=== PATIENT | female | born 1985 | race Caucasian/White ===

== ENCOUNTER 2016-04-15 20:37 | Emergency (ER) | payer MEDICAID, OTHER ==
[~2016-04-15] VITALS: Ht 157.5 cm; Wt 54.5 kg
[~2016-04-15 20:37] MED LIST: CITA20 PO; FLAG500T PO; MEDR150P IM
[2016-04-15 20:39] VITALS: BP 119/73; PULSE 106; RESP 18; TEMP 98.1; O2SAT 97
--- NOTE | 2016-04-15 23:59 | PD ---
HPI Chief Complaint: Skin Problem Time Seen by Provider: 23:54 Travel History International Travel<30 days: No Contact w/Intl Traveler<30days: No Traveled to known affect area: No History of Present Illness HPI 30-year-old white female presents from her department with complains of a painful lump by her anus. She states that she's had this for many years. It comes and goes at times. It has been worse this past week. She does note some blood when she wipes. She also has noted a painful lump in her right groin. She has subjective fever and chills. No dysuria or frequency. No vaginal discharge. No abdominal pain. Symptoms are moderate. PFSH Past Medical History Medical History: Denies Significant Hx Reproductive: Yes (STATES HAS HAD CYSTS ON OVERIES) Tetanus Vaccination: < 5 Years ?: Not : 1 : 1 Dilation and Curettage (D&C): No Past Surgical History Surgical History: No Previous Surgery Social History Alcohol Use: No Tobacco Use: No Substance Use: No Allergies-Medications (Allergen,Severity, Reaction): Coded Allergies: No Known Allergies (Verified , 11/04/13) Reported Meds & Prescriptions Reported Meds & Active Scripts Active Flagyl (Metronidazole) 500 Mg Tab 500 Mg PO BID Celexa 20 Mg Tab (Citalopram Hydrobromide) 20 Mg Tab 20 Mg PO DAILY Depoprovera 150 Mg Vial (Medroxyprogesterone Acetate) 150 Mg/Ml Susp 150 Mg IM Q90D Review of Systems Except as stated in HPI: all other systems reviewed are Neg Physical Exam Narrative Patient's examined with Desire present GENERAL: This is a well-nourished, well-developed patient, in no apparent distress. SKIN: Patient has mild erythema in the pubic region with a tender right inguinal lymph node. No fluctuance or pointing. No lymphangitis. HEAD: Atraumatic. Normocephalic. EYES: PERRL, EOMI, no discharge or injection. No scleral icterus. EARS: Clear NOSE: Nasal turbinates appear normal. THROAT: Mucosa pink and moist. Airway patent. NECK: Trachea midline. supple, moves head freely. LUNGS: Clear to auscultation. CV: Regular in rhythm. ABDOMEN: Soft nontender. EXT: No clubbing cyanosis or edema. Rectal: Patient has a tender nonthrombosed hemorrhoid at the 6:00 hour. Data Data Last Documented VS Vital Signs Date Time Temp Pulse Resp B/P Pulse Ox O2 Delivery O2 Flow Rate FiO2 04/15/16 20:39 98.1 106 18 119/73 97 Room Air MDM Medical Decision Making Medical Screen Exam Complete: Yes Emergency Medical Condition: Yes Medical Record Reviewed: Yes Differential Diagnosis MDM: High Differential diagnoses: Abscess, folliculitis, cellulitis, lymphangitis, abrasion, contact dermatitis, hemorrhoid Narrative Course Patient has folliculitis with a tender right inguinal lymph node, hemorrhoid Patient is given Motrin 600 mg by mouth and Bactrim DS by mouth. Diagnosis Primary Impression: folliculitis with tender lymph node Additional Impression: Hemorrhoids Qualified Code: K64.9 - Hemorrhoids, unspecified hemorrhoid type Patient Instructions: General Instructions Departure Forms: Tests/Procedures, Work Release Special Instructions: No work 2 days. Additional Instructions: Rest. Warm compresses. Sits baths 3 times daily. 3 Advil every 6 hours. Bactrim DS, Anusol HC Follow-up with a medical doctor in the next 3-7 days. Med/Other Pt SpecificInfo: Prescription(s) given Disposition: 01 DISCHARGE HOME Condition: Stable Zeus Owusu Apr 15, 2016 23:59
[2016-04-16] MEDS ORDERED: IBUPROFEN 600 MG TAB PO ONE
[2016-04-16] MEDS ORDERED: SULFAMETHOXAZOLE-TRIMETHOPRIM DS 800-160 MG TAB PO ONE
[2016-04-16] MEDS ORDERED: HYDR2.5%T RECTAL (00:02)
[2016-04-16] MEDS ORDERED: BACT800T5 PO (00:02)
== END 2016-04-16 00:33 | disposition home or self-care (01) ==
LOC: NEPB 20:37
DX: L73.9 Follicular disorder, unspecified (principal); R59.9 Enlarged lymph nodes, unspecified; K64.9 Unspecified hemorrhoids
CPT/HCPCS: 99283

== ENCOUNTER 2016-06-12 19:53 | Emergency (ER) | payer OTHER ==
[~2016-06-12] VITALS: Ht 157.5 cm; Wt 56.8 kg
[~2016-06-12 19:53] MED LIST changes: +BACT800T5 PO; -CITA20 PO; -FLAG500T PO; +HYDR2.5%T RECTAL; -MEDR150P IM
[2016-06-12 19:55] VITALS: BP 140/66; PULSE 88; RESP 14; TEMP 98.5; O2SAT 98
--- NOTE | 2016-06-12 22:27 | PD ---
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 Robles , presents to the emergency department for painful lesion on her anterior right buttock just posterior and lateral to her labia. Patient states it is gotten bigger over the last 4 days and then ruptured today. There was a purulent drainage associated with it. She took a sitz bath and believes it may have closed back up because she feels as though is getting larger again. Denies any injury. No fever or chills. No vaginal discharge or bleeding. No abdominal pain, crampy. No difficulty with bowel movements. No other symptoms to report. PFSH Past Medical History Medical History: Denies Significant Hx Reproductive: Yes (STATES HAS HAD CYSTS ON OVERIES) ?: LMP: 03/22/2016 : 4 Para: 2 : 1 Dilation and Curettage (D&C): No Past Surgical History Surgical History: No Previous Surgery Social History Alcohol Use: No Tobacco Use: No Substance Use: No Allergies-Medications (Allergen,Severity, Reaction): Coded Allergies: No Known Allergies (Verified , 06/12/16) Reported Meds & Prescriptions Reported Meds & Active Scripts Active Anusol-Hc Rectal (Hydrocortisone Rectal) 2.5% Cream 1 Applic RECTAL Q4-6H PRN Bactrim DS (Sulfamethoxazole-Trimethoprim) 800-160 Mg Tab 1 Tab PO BID Review of Systems Except as stated in HPI: all other systems reviewed are Neg Physical Exam Narrative GENERAL: Well-nourished, well-developed email patient, in no acute distress SKIN: There is an indurated area in the right buttock which measures about 2 cm in diameter. There is purulent drainage coming from a small opening.. There is a zone of inflammation around it but no lymphangitis. HEAD: Normocephalic. EYES: No scleral icterus. No injection or drainage. NECK: Supple, trachea midline. No JVD or lymphadenopathy. CARDIOVASCULAR: Regular rate and rhythm without murmurs, gallops, or rubs. RESPIRATORY: Breath sounds equal bilaterally. No accessory muscle use. GASTROINTESTINAL: Abdomen soft, non-tender, nondistended. MUSCULOSKELETAL: No cyanosis, or edema. BACK: Nontender without obvious deformity. No CVA tenderness. Data Data Last Documented VS Vital Signs Date Time Temp Pulse Resp B/P Pulse Ox O2 Delivery O2 Flow Rate FiO2 06/12/16 19:55 98.5 88 14 140/66 98 Room Air MDM Medical Decision Making Medical Screen Exam Complete: Yes Emergency Medical Condition: Yes Medical Record Reviewed: Yes Differential Diagnosis Abscess versus cellulitis versus folliculitis versus erysipelas Narrative Course 30-year-old female presents to emergency department for evaluation of an abscess on her right buttock. Area is small and already draining. It is further opened and irrigated. Culture is obtained. Skin marker is used to willy the area. Discussed patient my attending physician Dr. Oshea. Patient will be discharged home to follow up with a primary care provider. She agrees to return immediately with any acute worsening of symptoms. Procedures Procedure Narrative INCISION AND DRAINAGE OF ABSCESS: The area was prepped and was sterilely draped. Topical ethyl chloride was used to anesthetize the area. The area was properly anesthetized. A number 11 scalpel was used to make a 1-cm incision across the area of the abscess. Cultures were obtained. The abscess was drained an irrigated with normal saline. Diagnosis Primary Impression: Abscess of right buttock Referrals: Primary Care Physician Patient Instructions: Abscess Incision and Drainage (ED), General Instructions Additional Instructions: Sitz baths 2-3 times a day Follow up with a primary care provider Tylenol as directed on the package as needed for pain Return in 24 hours for re-evaluation and immediately with any acute worsening of symptoms Med/Other Pt SpecificInfo: No Meds Exist/No RX given Disposition: 01 DISCHARGE HOME Condition: Stable Annalee PerezP Jun 12, 2016 22:27
[2016-06-12] MEDS ORDERED: CLIN1CAP5 PO (22:38)
== END 2016-06-12 23:00 | disposition home or self-care (01) ==
LOC: NEPE 19:53
DX: O26.892 Other specified pregnancy related conditions, second trimester (principal); L02.31 Cutaneous abscess of buttock
CPT/HCPCS: 10060

== ENCOUNTER 2016-08-20 21:42 | Emergency (ER) | payer OTHER ==
[2016-08-20] VITALS (7 sets, daily range): PULSE 75–88
--- NOTE | 2016-08-20 22:31 | PD ---
HPI Chief Complaint pelvic pressure Date Seen: August 20, 2016 Time Seen: 22:28 Travel History International Travel<30 Days: No Contact w/Intl Traveler<30Days: No Known Affected Area: No History of Present Illness HPI 30 yo at 24 weeks by LMP presents with pelvic pressure that began when walking earlier today. Denies contractions, vaginal bleeding, dysuria, or discharge. Has appointment to see Dr Robles in 6 days for initiation of care. Previous pregnancies resulted in at term. Para: 2 : 3 History Past Medical History Medical History: Denies Significant Hx Obstetric History Obstetric History x 2 Past Surgical History Surgical History: No Previous Surgery Family History Family History: Negative Social History Alcohol Use: No Tobacco Use: No Substance Abuse: No Allergies-Medications (Allergen,Severity, Reaction): Coded Allergies: No Known Allergies (Verified , 06/12/16) Home Meds Discontinued Scripts Hydrocortisone Rectal (Anusol-Hc Rectal)2.5% Cream1 Applic RECTAL Q4-6H PRN ( ITCHING/INFLAMMATION) #30 GM Ref 0 Prov:Clif Quesada MD 04/16/16 Sulfamethoxazole-Trimethoprim (Bactrim DS)800-160 Mg Tab1 Tab PO BID #20 TAB Prov:Clif Quesada MD 04/16/16 Review of Systems Except as stated in HPI: all other systems reviewed are Neg Physical Exam Narrative GENERAL: Well-nourished, well-developed patient. SKIN: Warm and dry. HEAD: Normocephalic and atraumatic. EYES: No scleral icterus. No injection or drainage. ENT: No nasal drainage noted. Mucous membranes pink. Airway patent. NECK: Supple, trachea midline. No JVD. ABDOMEN/GI: Abdomen soft, non-tender, bowel sounds present, no rebound, no guarding Gravid to [-22] weeks size Fundal Height: [-] GENITOURINARY: External Genitalia: intact and normal in appearance BUS glands: [-nl] Cervix: [posterior -] Dilatation: [-closed] Effacement: [-] Station: [-] Presentation: [-] Membranes: [intact ] Uterine Contractions: [-absent] FHT's: 152 Category: [-] Baseline: [150-] Reactive: [-] Variability: [-min/mod c/w gestational age] Decels: [-absent] EXTREMITIES: No cyanosis or edema. BACK: Nontender without obvious deformity. No CVA tenderness. NEUROLOGICAL: Awake and alert. Motor and sensory grossly within normal limits. Five out of 5 muscle strength in all muscle groups. Normal speech. Data Data Labs Laboratory Tests Test 08/20/16 22:30 Urine Color YELLOW Urine Turbidity CLOUDY Urine pH 8.0 Urine Specific [place] 1.016 Urine Protein TRACE mg/dL Urine Glucose (UA) NEG mg/dL Urine Ketones NEG mg/dL Urine Occult Blood NEG Urine Nitrite NEG Urine Bilirubin NEG Urine Urobilinogen LESS THAN 2.0 MG/DL Urine Leukocyte Esterase NEG Urine RBC 3 /hpf Urine WBC 1 /hpf Urine Squamous Epithelial 3 /hpf Cells Urine Amorphous Sediment RARE Microscopic Urinalysis Comment CULT NOT INDICATED MDM Plan 30yo with pelvic pressure, no contraction on monitor or by palpation UA normal Follow up with OB provider as scheduled Diagnosis Diagnosis: Primary Impression: 24 weeks gestation of Additional Impression: Feeling pelvic pressure during in second trimester, antepartum Disposition: DISCHARGE HOME Karen López MD August 20, 2016 22:31
[2016-08-20 23:01] LABS: BLOOD, URINE NEG (NEG); GLUCOSE,URINE NEG (NEG); KETONE, URINE NEG (NEG); NITRITE,URINE NEG (NEG); SQUAMOUS EPITHELIAL CELL URINE 3 /hpf (0-5); URINE COLOR YELLOW (YELLW/STRAW)
[2016-08-20 23:02] LABS: COMMENT (UR) CULT NOT INDICATED; CULTURE IF INDICATED CULT NOT INDICATED
== END 2016-08-20 23:20 | disposition home or self-care (01) ==
LOC: HOBED 21:42
DX: O26.892 Other specified pregnancy related conditions, second trimester (principal); Z3A.24 24 weeks gestation of pregnancy
CPT/HCPCS: 81001; 99282

== ENCOUNTER → 2016-11-12 | Outpatient (CLI) | payer MEDICAID, OTHER ==
[~2016-11-12] MED LIST changes: -BACT800T5 PO; +FLUO20CA12 PO; -HYDR2.5%T RECTAL; +IBUP-232 PO; +PRENTAB44; +TYLE325T PO
== END ==
LOC: HPND 15:40
PROVIDERS: ATTEND Obstetrics & Gynecology
DX: O36.5930 Maternal care for other known or suspected poor fetal growth, third trimester, not applicable or unspecified (principal); Z3A.33 33 weeks gestation of pregnancy
CPT/HCPCS: 76816

== ENCOUNTER 2016-12-16 09:36 | Inpatient (IN) | payer MEDICAID ==
[~2016-12-16] VITALS: Ht 157.5 cm; Wt 62.6 kg
[2016-12-16] MEDS ORDERED: OXYTOCIN 30 UNITS-500ML PREMIX 500 ML ONE (09:44)
[2016-12-16] MEDS ORDERED: LIDOCAINE HCL 1% 50 ML VIAL ONE (09:45)
--- NOTE | 2016-12-16 10:02 | PD.OB.DELI ---
Gest age assessed date: Dec 16, 2016 Pt started active labor?: Yes Active labor start date: Dec 16, 2016 Medical induction of labor?: No Artificial rupture of membrane: No Anesthesia: None Episiotomy: None Vaginal Delivery: Normal Presentation: Occiput anterior Nuchal Cord: None Delayed cord clamping (45 sec): Yes : Female Delivery date: Dec 16, 2016 One Minute : 8, 9 Five Minute : 9 Placenta: Spontaneous delivery, Intact, 3 vessel cord Laceration: No lacerations Additional Information nice precip delivery of baby girl Thick meconium No problems Kali Robles MD Dec 16, 2016 10:02
[2016-12-16] MEDS ORDERED: oxyCODONE/ACETAMINOPHEN 5 MG/325 MG TAB PO PRN ×2 (10:15)
[2016-12-16] MEDS ORDERED: ALUMINUM/MAGNESIUM/SIMETH 30 ML CUP PO PRN (10:15)
[2016-12-16] MEDS ORDERED: OXYTOCIN 30 UNITS-500ML PREMIX 500 ML IV SCH (10:15)
[2016-12-16] MEDS ORDERED: ZOLPIDEM TARTRATE 5 MG TAB PO PRN (10:15)
[2016-12-16] MEDS ORDERED: OXYTOCIN 30 UNITS-500ML PREMIX 500 ML IV ONE (10:15)
[2016-12-16] MEDS ORDERED: WITCH HAZEL 50%/GLYCERIN 12.5% 40 PAD JAR TOPICAL PRN (10:15)
[2016-12-16] MEDS ORDERED: ONDANSETRON ODT 4 MG TAB PO PRN (10:15)
[2016-12-16] MEDS ORDERED: DOCUSATE SODIUM 50 MG/SENNA 8.6 MG TAB PO PRN (10:15)
[2016-12-16] MEDS ORDERED: SODIUM CHLORIDE 0.9% FLUSH 10 ML FLUSH IV FLUSH PRN (10:15)
[2016-12-16] MEDS ORDERED: BENZOCAINE 20% TOPICAL SPRAY 60 ML CAN TOPICAL PRN (10:15)
[2016-12-16] MEDS ORDERED: ACETAMINOPHEN 325 MG TAB PO PRN (10:15)
[2016-12-16] MEDS: IBUPROFEN 600 MG TAB PO PRN (10:42)
[2016-12-16 11:07] LABS: HEMATOCRIT 44.3 % (35.0-46.0); LYMPH % 31.1 % (9.0-44.0); MEAN CELL VOLUME 84.7 FL (80.0-100.0); MEAN CORPUSCULAR HEMOGLOBIN 28.2 PG (27.0-34.0); MEAN CORPUSCULAR HGB CONC 33.3 % (32.0-36.0); MONO % 6.9 % (0.0-8.0); NEUT % 59.7 % (16.0-70.0); PLATELET COUNT 214 TH/MM3 (150-450); RED BLOOD COUNT 5.23 MIL/MM3 (4.00-5.30); RED CELL DISTRIBUTION WIDTH 13.2 % (11.6-17.2); WHITE BLOOD COUNT 16.1 TH/MM3 (4.0-11.0)
[2016-12-16 11:08] LABS: AUTOMATED NEUTROPHIL # 9.6 TH/MM3 (1.8-7.7); BASOPHIL # 0.1 TH/MM3 (0-0.2); BASOPHIL % 0.5 % (0.0-2.0); EOSINOPHIL # 0.3 TH/MM3 (0-0.4); EOSINOPHIL % 1.8 % (0.0-4.0)
[2016-12-16 11:09] LABS: HEMO FLAGS AUTO DIFF
[2016-12-16 11:11] LABS: BLOOD, URINE NEG (NEG); GLUCOSE,URINE NEG (NEG); KETONE, URINE 40 mg/dL (NEG); MUCUS URINE FEW /lpf (OCC); NITRITE,URINE NEG (NEG); PH, URINE 7.5 (5.0-8.5); TRANSITIONAL EPI CELLS, URINE <1 /hpf; URINE COLOR LIGHT-YELLOW (YELLW/STRAW)
[2016-12-16 11:12] LABS: COMMENT (UR) CULT NOT INDICATED; CULTURE IF INDICATED CULT NOT INDICATED
[2016-12-16] MEDS ORDERED: TYLE325T PO (11:47)
[2016-12-16] MEDS ORDERED: PRENTAB44 (11:47)
[2016-12-16 12:07] LABS: PLATELET ESTIMATE SMEAR NORMAL (NORMAL); PLATELET MORPHOLOGY ENLARGED (NORMAL); SCAN/DIFF AUTO DIFF CONFIRMED
[2016-12-16] MEDS ORDERED: DIPHTH/TETANUS/ACEL PERTUSSIS (BOOSTER) 0.5 ML VIAL/PFS IM ONE (16:00)
[2016-12-16] MEDS ORDERED: MEASLES, MUMPS, RUBELLA VACCINE 0.5 ML VIAL SQ ONE (16:00)
[2016-12-16] MEDS ORDERED: SODIUM CHLORIDE 0.9% FLUSH 10 ML FLUSH IV FLUSH SCH (21:00)
[2016-12-17] MEDS: IBUPROFEN 600 MG TAB PO PRN (08:25)
--- NOTE | 2016-12-17 13:14 | HHI.OB ---
Subjective Post Day: 1 Objective Vitals/I&O vss Objective Remarks GENERAL: Well-nourished, well-developed patient. CARDIOVASCULAR: Regular rate and rhythm without murmurs, gallops, or rubs. RESPIRATORY: Breath sounds equal bilaterally. No accessory muscle use. ABDOMEN/GI: Abdomen soft, non-tender. Fundus: Firm, non-tender at umbilicus. GENITOURINARY: Light to moderate bleeding. EXTREMITIES: No cyanosis or edema, non-tender, without signs of DVT. Medications and IVs Current Medications Medications (Trade) Dose Ordered Sig/Luli Route Start Time Stop Time Status Last Admin (NS Flush) 2 ml BID IV FLUSH 12/16/16 21:00 (NS Flush) 2 ml UNSCH PRN IV FLUSH 12/16/16 10:15 (Tylenol) 650 mg Q4H PRN PO 12/16/16 10:15 (Motrin) 600 mg Q6H PRN PO 12/16/16 10:15 12/17/16 08:25 (Percocet 5-325 Mg) 1 tab Q4H PRN PO 12/16/16 10:15 (Percocet 5-325 Mg) 2 tab Q4H PRN PO 12/16/16 10:15 (Americaine 20% Top Spr) 1 spray Q4H PRN TOPICAL 12/16/16 10:15 (Tucks Pads) 1 applic QID PRN TOPICAL 12/16/16 10:15 12/16/16 18:13 (Arely-Colace) 2 tab Q12H PRN PO 12/16/16 10:15 12/17/16 08:25 (Ambien) 5 mg HS PRN PO 12/16/16 10:15 (Mag-Al Plus Susp Liq) 15 ml Q8H PRN PO 12/16/16 10:15 (Zofran Odt) 4 mg Q6H PRN PO 12/16/16 10:15 (PROzac) 20 mg HS PO 12/17/16 21:00 Assessment/Plan Problem List: (1) Depression affecting in third trimester, antepartum ICD Codes: O99.343 - Other mental disorders complicating , third trimester; F32.9 - Major depressive disorder, single episode, unspecified (2) Normal vaginal delivery ICD Codes: O80 - Encounter for full-term uncomplicated delivery Assessment and Plan pt doing well pain well managed with Motrin only pt bonding with currently pumping and dumping + Cannibis routine care Discharge Planning dc home tomorrow Kaykay Phelps Dec 17, 2016 13:14
[2016-12-17] MEDS ORDERED: FLUoxetine HCL 20 MG CAP PO SCH (21:00)
[2016-12-18] MEDS: IBUPROFEN 600 MG TAB PO PRN (05:14)
--- NOTE | 2016-12-18 11:22 | HHI.OB ---
Subjective Post Day: 2 Objective Vitals/I&O vss Objective Remarks GENERAL: Well-nourished, well-developed patient. CARDIOVASCULAR: Regular rate and rhythm without murmurs, gallops, or rubs. RESPIRATORY: Breath sounds equal bilaterally. No accessory muscle use. ABDOMEN/GI: Abdomen soft, non-tender. Fundus: Firm, non-tender at umbilicus. GENITOURINARY: Light to moderate bleeding. EXTREMITIES: No cyanosis or edema, non-tender, without signs of DVT. Medications and IVs Current Medications Medications (Trade) Dose Ordered Sig/Luli Route Start Time Stop Time Status Last Admin (NS Flush) 2 ml BID IV FLUSH 12/16/16 21:00 (NS Flush) 2 ml UNSCH PRN IV FLUSH 12/16/16 10:15 (Tylenol) 650 mg Q4H PRN PO 12/16/16 10:15 (Motrin) 600 mg Q6H PRN PO 12/16/16 10:15 12/18/16 05:14 (Percocet 5-325 Mg) 1 tab Q4H PRN PO 12/16/16 10:15 (Percocet 5-325 Mg) 2 tab Q4H PRN PO 12/16/16 10:15 (Americaine 20% Top Spr) 1 spray Q4H PRN TOPICAL 12/16/16 10:15 (Tucks Pads) 1 applic QID PRN TOPICAL 12/16/16 10:15 12/16/16 18:13 (Arely-Colace) 2 tab Q12H PRN PO 12/16/16 10:15 12/17/16 08:25 (Ambien) 5 mg HS PRN PO 12/16/16 10:15 (Mag-Al Plus Susp Liq) 15 ml Q8H PRN PO 12/16/16 10:15 (Zofran Odt) 4 mg Q6H PRN PO 12/16/16 10:15 (PROzac) 20 mg HS PO 12/17/16 21:00 12/17/16 21:23 Assessment/Plan Problem List: (1) Depression affecting in third trimester, antepartum ICD Codes: O99.343 - Other mental disorders complicating , third trimester; F32.9 - Major depressive disorder, single episode, unspecified (2) Normal vaginal delivery ICD Codes: O80 - Encounter for full-term uncomplicated delivery Assessment and Plan pt doing well pain well managed with Motrin only currently pumping and dumping + Cannibis c/o decreased appetite, pt staying hydrated, encouraged to eat small meals, will watch routine care Discharge Planning dc home today Kaykay Phelps Dec 18, 2016 11:22
[2016-12-18] MEDS ORDERED: FLUO20CA12 PO (11:26)
[2016-12-18] MEDS ORDERED: IBUP-232 PO (11:26)
--- NOTE | 2016-12-18 12:29 | HHI.DCPOC ---
Discharge Care Plan Diagnosis: (1) Normal vaginal delivery Your Health Problems Are: Vaginal delivery Report Symptoms to Your Doctor -Temperature above 100.5 degrees -Redness, of incision or excessive or foul smelling drainage -Unusual pain or calf pain -Increased vaginal bleeding -Painful or difficulty urinating -Feelings of extreme sadness or anxiety after 2 weeks Goals to Promote Your Health * To prevent worsening of your condition and complications * To maintain your health at the optimal level Directions to Meet Your Goals Take your medications as prescribed Follow your dietary instruction Follow activity as directed Ensure plenty of rest for recovery Drink fluids for hydration Keep your appointments as scheduled Take your immunizations and boosters as scheduled If your symptoms worsen call your PCP, if no PCP go to Urgent Care Center or Emergency Room Smoking is Dangerous to Your Health. Avoid second hand smoke Call the 24-hour crisis hotline for domestic abuse at Kaykay Phelps Dec 18, 2016 12:29
--- NOTE | 2016-12-19 11:10 | HHI.DS ---
Admission Date Dec 16, 2016 at 09:41 Discharge Date: Dec 18, 2016 Admitting Diagnosis TERM ACTIVE LABOR Diagnosis: (1) Normal vaginal delivery Diagnosis: Principal ICD Codes: O80 - Encounter for full-term uncomplicated delivery (2) Depression affecting in third trimester, antepartum Diagnosis: Principal ICD Codes: O99.343 - Other mental disorders complicating , third trimester; F32.9 - Major depressive disorder, single episode, unspecified Delivery Date: Dec 16, 2016 Vaginal Delivery: Normal : Female Brief History TERM Hospital Course ROUTINE CARE Pt Condition on Discharge: Good Discharge Disposition: Discharge Home Discharge Instructions Diet Instructions: As Tolerated, No Restrictions Additional Diet Instructions: Drink at least 8 - 16 oz bottles of water a day Activities You Can Perform: Shower Only-No Bath, Sitz Bath Activities to Avoid: Lifting/Bending, Sexual Activity Additional Activity Instruc.: No driving until off pain medications Do not lift anything heavier than your baby in an infant carrier 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
[2016-12-20 09:02] LABS: BATH SALTS (MDPV) UR NEG (NEG); ECSTASY (MDMA) UR NEG (NEG); GABAPENTIN UR NEG (NEG); HEROIN (6-ACETYLMORPHINE) UR NEG (NEG); HYDROMORPHONE U NEG (NEG); K2 SPICE UR NEG (NEG); OBMETHADONE UR NEG (NEG); PHENCYCLIDINE URINE NEG (NEG)
== END 2016-12-18 13:04 | disposition home or self-care (01) | DRG 775 ==
LOC: HOBED 09:36 → H2EA 09:41 → H1EA 11:18
PROVIDERS: ADMIT Obstetrics & Gynecology; ATTEND Obstetrics & Gynecology
PROC: 10E0XZZ Delivery of Products of Conception, External Approach (ICD-10-PCS; principal; 2016-12-16)
DX: O62.3 Precipitate labor (principal); O99.344 Other mental disorders complicating childbirth; F32.9 Major depressive disorder, single episode, unspecified; Z37.0 Single live birth; Z3A.00 Weeks of gestation of pregnancy not specified; O77.0 Labor and delivery complicated by meconium in amniotic fluid
CPT/HCPCS: 80307; 81001; 85025; 90715; G0481; J2590

== ENCOUNTER 2017-06-11 11:53 | Emergency (ER) | payer SELFPAY ==
[2017-06-11 12:27] VITALS: BP 133/73; PULSE 82; RESP 18; TEMP 83; O2SAT 99
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
[2017-06-11] MEDS ORDERED: IBUPROFEN 600 MG TAB PO ONE (15:00)
[2017-06-11] MEDS ORDERED: IBUP-232 PO (15:00)
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
== END 2017-06-11 15:29 | disposition home or self-care (01) ==
LOC: NEPK 11:53
DX: M23.92 Unspecified internal derangement of left knee (principal)
CPT/HCPCS: 73564; 99283; E0113; L1830